=== PATIENT | male | born 1970 | race Hispanic/Latino ===

== ENCOUNTER 2022-08-13 09:37 | Inpatient (IN) | payer OTHER ==
[2022-08-13] VITALS (35 sets, daily range): BP systolic 92–147; BP diastolic 38–83
[~2022-08-13] VITALS: Ht 167.6 cm; Wt 91.1 kg
[2022-08-13] MEDS ORDERED: HEPARIN 5,000 UNIT VIAL ONE (09:50)
[2022-08-13] MEDS ORDERED: NITROGLYCERIN 0.4 MG SL TAB SL ONE (09:50)
[2022-08-13] MEDS ORDERED: HEPARIN 5,000 UNIT VIAL IV STA (09:52)
[2022-08-13] MEDS ORDERED: NITROGLYCERIN 50MG/D5W 250ML 250 BOT IV STA (09:52)
[2022-08-13] MEDS ORDERED: HEPARIN 25,000 UNITS/250ML D5W 0 ML IV ONE (09:54)
[2022-08-13] MEDS ORDERED: ATROPINE 1MG SYG IVP ONE ×2 (10:00→10:35)
[2022-08-13] MEDS ORDERED: HEPARIN 5,000 UNIT VIAL IV ONE (10:00)
[2022-08-13] MEDS ORDERED: MIDAZOLAM HCL 1 MG/ML 2ML VIAL ONE (10:01)
[2022-08-13] MEDS ORDERED: IOHEXOL 350 MG/ML 100ML INFUS..BTL IV ONE (10:01)
[2022-08-13] MEDS ORDERED: HEPARIN 10,000 UNIT/10ML (1,000 UNIT/ML) VIAL ONE (10:01)
[2022-08-13] MEDS ORDERED: NITROGLYCERIN 50MG VIAL ONE (10:01)
[2022-08-13] MEDS ORDERED: FENTANYL CITRATE PF 50 MCG/1 ML 2ML VIAL ONE (10:01)
[2022-08-13] MEDS ORDERED: LIDOCAINE HCL 1% MDV 50ML VIAL ONE (10:01)
[2022-08-13 10:06] LABS: BASOPHILS % (AUTO) 0.9 % (0.0-5.0); EOSINOPHILS % (AUTO) 1.6 % (0.0-8.0); HEMATOCRIT 45.6 % (42-54); LYMPHOCYTES % (AUTO) 22.7 % (21.0-51.0); MEAN CORPUSCULAR HEMOGLOBIN 29.9 pg (27.0-33.0); MEAN CORPUSCULAR HGB CONC 33.3 g/dL (32.0-36.0); MEAN CORPUSCULAR VOLUME 89.6 fL (79-99); MONOCYTES % (AUTO) 6.4 % (3.0-13.0); PLATELET COUNT (AUTO) 230 K/uL (130-400); RED BLOOD CELL COUNT(AUTO) 5.09 MIL/uL (4.50-6.20); RED CELL DISTRIBUTION WIDTH 13.3 % (11.0-15.5); WHITE BLOOD COUNT (AUTO) 11.8 K/uL (4.8-10.8)
[2022-08-13 10:18] LABS: INR 0.99 (0.85-1.15); PROTHROMBIN TIME 10.8 SEC (9.6-11.6)
[2022-08-13 10:20] LABS: PARTIAL THROMBOPLASTIN TIME 40.6 SEC (26.3-35.5)
[2022-08-13 10:21] LABS: POTASSIUM 4.1 mmol/L (3.5-5.1)
[2022-08-13 10:25] LABS: B-TYPE NATRIURETIC PEPTIDE 15 pg/mL (0-100)
[2022-08-13] MEDS ORDERED: EPTIFIBATIDE 2 MG/ML 10 ML VIAL IVP ONE (10:38)
[2022-08-13] MEDS ORDERED: EPTIFIBATIDE 75MG/100ML BOTTLE 100 ML IV ONE (10:38)
[2022-08-13 11:04] LABS: ALBUMIN 3.7 g/dL (3.5-5.0)
[2022-08-13] MEDS ORDERED: NITROGLYCERIN 0.4 MG SL TAB SL PRN (12:00)
[2022-08-13] MEDS ORDERED: 0.9%NACL 1000ML 1,000 ML IV SCH (12:00)
[2022-08-13] MEDS ORDERED: DEXTROSE 50%-WATER 50 ML DISP.SYRIN IV PRN (12:00)
[2022-08-13] MEDS ORDERED: GLUCAGON 1MG KIT 1 MG ML IM PRN (12:00)
[2022-08-13] MEDS ORDERED: ACETAMINOPHEN 325 MG TAB PO PRN (13:30)
[2022-08-13] MEDS: EPTIFIBATIDE 75MG/100ML BOTTLE 100 ML IV SCH ×2 (14:09→19:31)
[2022-08-13] MEDS ORDERED: ALBUTEROL INHALER 90MCG/INH IH PRN (15:00)
[2022-08-13] MEDS ORDERED: ONDANSETRON 4MG INJ IVP PRN (15:00)
[2022-08-13] MEDS ORDERED: ACETAMINOPHEN WITH CODEINE 1 TAB TAB PO PRN (15:00)
[2022-08-13] MEDS: TICAGRELOR 90 MG TABLET PO SCH (20:42)
[2022-08-13] MEDS: ATORVASTATIN 40 MG TABLET PO SCH (20:42)
[2022-08-14] VITALS (25 sets, daily range): BP systolic 94–131; BP diastolic 43–62
[2022-08-14 01:32] LABS: APPEARANCE,URINE CLEAR (CLEAR); BILIRUBIN,URINE NEGATIVE (NEGATIVE); COLOR,URINE YELLOW (YELLOW); GLUCOSE, URINE (UA) NEGATIVE (NEGATIVE); KETONES,URINE NEGATIVE (NEGATIVE); LEUKOCYTE ESTERASE ,URINE NEGATIVE Leu/uL (NEGATIVE); NITRATE,URINE NEGATIVE (NEGATIVE); PROTEIN,URINE 10 mg/dL (NEGATIVE); UROBILINOGEN,URINE 0.2 mg/dL (0.2-1.0)
[2022-08-14 01:38] LABS: MUCUS,URINE RARE LPF (None Seen); SQUAMOUS EPITHELIAL CELL,UR RARE /HPF (0-2); WBC,URINE 0-1 /HPF (0-1)
[2022-08-14] MEDS: EPTIFIBATIDE 75MG/100ML BOTTLE 100 ML IV SCH (02:35)
[2022-08-14 04:14] LABS: HEMATOCRIT 39.9 % (42-54); MEAN CORPUSCULAR HEMOGLOBIN 30.1 pg (27.0-33.0); MEAN CORPUSCULAR HGB CONC 33.1 g/dL (32.0-36.0); MEAN CORPUSCULAR VOLUME 91.1 fL (79-99); RED BLOOD CELL COUNT(AUTO) 4.38 MIL/uL (4.50-6.20); RED CELL DISTRIBUTION WIDTH 13.6 % (11.0-15.5); WHITE BLOOD COUNT (AUTO) 10.9 K/uL (4.8-10.8)
[2022-08-14 04:18] LABS: HEMOGLOBIN A1C 5.6 % (4.0-6.0)
[2022-08-14 04:49] LABS: ALANINE AMINOTRANSFERASE 49 U/L (12-78); ALBUMIN 2.9 g/dL (3.5-5.0); ASPARTATE AMINOTRANSFERASE 180 U/L (10-37); BILIRUBIN,DIRECT < 0.1 mg/dL (0.0-0.3); CARBON DIOXIDE 23 mmol/L (21-32); CHLORIDE 105 mmol/L (101-111); CHOLESTEROL 169 mg/dL (<200); CREATININE 0.9 mg/dL (0.5-1.5); GLOMERULAR FILTR. RATE CALC 94 mL/min (>60); GLUCOSE,RANDOM 136 mg/dL (70-105); HDL CHOLESTEROL 23 mg/dL (29-71); LDL DIRECT 114 mg/dL (0-99); MYOGLOBIN 81 ng/mL (10-92); POTASSIUM 3.4 mmol/L (3.5-5.1); SODIUM SERUM 138 mmol/L (136-145); THYROID STIMULATING HORMONE 3.14 uIU/mL (0.36-3.74); TOTAL PROTEIN, SERUM 5.8 g/dL (6.0-8.3); TRIGLYCERIDES 258 mg/dL (30-200); UREA NITROGEN, BLOOD 12 mg/dL (7-18)
[2022-08-14 05:19] LABS: CREATINE KINASE, TOTAL 1579 U/L (21-232)
[2022-08-14] MEDS: KCL 20 MEQ ERTAB PO PRN ×2 (05:57→13:02)
[2022-08-14] MEDS ORDERED: POTASSIUM CHLORIDE 10% ELIXIR 20 MEQ/15 ML UDCUP PO PRN (06:00)
[2022-08-14] MEDS ORDERED: LIDOCAINE HCL-MPF 1% 2ML VIAL IV PRN (06:00)
[2022-08-14] MEDS ORDERED: POTASSIUM CHLORIDE 20MEQ/100ML 100 ML IV PRN (06:00)
[2022-08-14] MEDS: FAMOTIDINE 20MG TAB PO SCH ×2 (07:51→20:54)
[2022-08-14] MEDS: ASPIRIN 81MG CHEW TAB PO SCH (07:51)
[2022-08-14] MEDS: TICAGRELOR 90 MG TABLET PO SCH ×2 (07:52→20:54)
[2022-08-14 13:18] LABS: POTASSIUM 3.7 mmol/L (3.5-5.1)
[2022-08-14] MEDS: ATORVASTATIN 40 MG TABLET PO SCH (20:54)
[2022-08-15 05:17] VITALS: BP 114/56
[2022-08-15 07:00] VITALS: BP 112/51
[2022-08-15] MEDS: TICAGRELOR 90 MG TABLET PO SCH (09:31)
[2022-08-15] MEDS: FAMOTIDINE 20MG TAB PO SCH (09:31)
[2022-08-15] MEDS: ASPIRIN 81MG CHEW TAB PO SCH (09:31)
[2022-08-15 09:39] LABS: BASOPHILS % (AUTO) 0.6 % (0.0-5.0); EOSINOPHILS % (AUTO) 1.5 % (0.0-8.0); HEMATOCRIT 40.4 % (42-54); MEAN CORPUSCULAR HEMOGLOBIN 30.4 pg (27.0-33.0); MEAN CORPUSCULAR HGB CONC 34.7 g/dL (32.0-36.0); MEAN CORPUSCULAR VOLUME 87.8 fL (79-99); MONOCYTES % (AUTO) 6.3 % (3.0-13.0); NEUTROPHILS % (AUTO) 69.4 % (40.0-77.0); PLATELET COUNT (AUTO) 214 K/uL (130-400); RED CELL DISTRIBUTION WIDTH 13.5 % (11.0-15.5); WHITE BLOOD COUNT (AUTO) 10.2 K/uL (4.8-10.8)
[2022-08-15 09:45] LABS: POTASSIUM 3.8 mmol/L (3.5-5.1)
[2022-08-15] MEDS ORDERED: ASPI-1005 PO (09:57)
[2022-08-15] MEDS ORDERED: ATOR40TA69 PO (09:57)
[2022-08-15] MEDS ORDERED: TICA90TA PO (09:57)
[2022-08-15 10:00] LABS: MAGNESIUM 1.9 mg/dL (1.80-2.40); PHOSPHORUS 2.9 mg/dL (2.5-4.9)
[2022-08-15] MEDS ORDERED: PANT40TA54 PO (10:14)
[2022-08-15] MEDS ORDERED: BUPR-74 PO (10:27)
[2022-08-15 11:37] VITALS: BP 120/69
[2022-08-15] MEDS ORDERED: CLOPIDOGREL 75MG TAB ONE (12:36)
[2022-08-15] MEDS ORDERED: CLOPIDOGREL 75MG TAB PO SCH (13:00)
== END 2022-08-15 12:45 | disposition home or self-care (01) | DRG 247 ==
LOC: EDH 09:37 → EDHIP 09:38 → 2CH 12:14 → 2AH 08-14 16:47
PROVIDERS: ADMIT Internal Medicine; ATTEND Internal Medicine
PROC: 027035Z Dilation of Coronary Artery, One Artery with Two Drug-eluting Intraluminal Devices, Percutaneous Approach (ICD-10-PCS; principal; 2022-08-13)
PROC: 02C03ZZ Extirpation of Matter from Coronary Artery, One Artery, Percutaneous Approach (ICD-10-PCS; 2022-08-13)
PROC: 4A023N7 Measurement of Cardiac Sampling and Pressure, Left Heart, Percutaneous Approach (ICD-10-PCS; 2022-08-13)
PROC: B2111ZZ Fluoroscopy of Multiple Coronary Arteries using Low Osmolar Contrast (ICD-10-PCS; 2022-08-13)
DX: I21.3 ST elevation (STEMI) myocardial infarction of unspecified site (principal); K21.9 Gastro-esophageal reflux disease without esophagitis; F17.200 Nicotine dependence, unspecified, uncomplicated; I45.9 Conduction disorder, unspecified; E78.5 Hyperlipidemia, unspecified; E66.9 Obesity, unspecified; Z82.49 Family history of ischemic heart disease and other diseases of the circulatory system; Z95.5 Presence of coronary angioplasty implant and graft; Z90.49 Acquired absence of other specified parts of digestive tract; Z83.3 Family history of diabetes mellitus; Z83.438 Family history of other disorder of lipoprotein metabolism and other lipidemia; Z79.82 Long term (current) use of aspirin; Z79.899 Other long term (current) drug therapy; Z68.32 Body mass index [BMI] 32.0-32.9, adult
CPT/HCPCS: 36415; 71045; 80048; 80053; 80061; 80076; 81001; 82550; 83036; 83735; 83874; 83880; 84100; 84132; 84443; 84484; 85025; 85027; 85347; 85378; 85610; 85730; 92973; 93005; 93306; 93454; 99156; 99157; 99291; C1760; C1887; C1894; C9606; G0378; J0461; J1327; J1644; J2250; J3010; J3490; Q9967

== ENCOUNTER 2022-08-19 16:15 | Emergency (ER) | payer OTHER ==
[~2022-08-19] VITALS: Ht 167.6 cm; Wt 86.2 kg
[~2022-08-19 16:15] MED LIST: ASPI-1005 PO; ATOR40TA69 PO; BUPR-74 PO; PANT40TA54 PO; TICA90TA PO
[2022-08-19 16:39] VITALS: BP 112/70
[2022-08-19] MEDS ORDERED: SOLU-MEDROL 125MG VIAL IVP ONE (17:30)
[2022-08-19] MEDS ORDERED: FAMOTIDINE 20MG VIAL IV ONE (17:30)
[2022-08-19] MEDS ORDERED: PRED5TAB PO (17:56)
[2022-08-19] MEDS ORDERED: FAMO20TA8 PO (17:56)
== END 2022-08-19 18:08 | disposition home or self-care (01) ==
LOC: EDH 16:15
DX: T78.40XA Allergy, unspecified, initial encounter (principal); I10 Essential (primary) hypertension; E78.00 Pure hypercholesterolemia, unspecified; I25.2 Old myocardial infarction; Z90.89 Acquired absence of other organs
CPT/HCPCS: 99284; 96374; 96375; J3490; J2930

== ENCOUNTER 2022-08-21 15:30 | Emergency (ER) | payer OTHER ==
[~2022-08-21] VITALS: Ht 167.6 cm; Wt 90.7 kg
[~2022-08-21 15:30] MED LIST changes: +FAMO20TA8 PO; +PRED5TAB PO
[2022-08-21 15:32] VITALS: BP 121/67
[2022-08-21] MEDS ORDERED: SOLU-MEDROL 125MG VIAL ONE (16:24)
[2022-08-21] MEDS ORDERED: SOLU-MEDROL 125MG VIAL IM ONE (16:30)
== END 2022-08-21 17:32 | disposition home or self-care (01) ==
LOC: EDH 15:30
DX: T78.40XA Allergy, unspecified, initial encounter (principal); I10 Essential (primary) hypertension; E78.00 Pure hypercholesterolemia, unspecified; I25.2 Old myocardial infarction; Z90.89 Acquired absence of other organs; Z79.899 Other long term (current) drug therapy; X58.XXXA Exposure to other specified factors, initial encounter
CPT/HCPCS: 99283; 96372; J2930